=== PATIENT | female | born 1970 | race Caucasian/White ===

== ENCOUNTER 2017-10-26 08:16 | Inpatient (IN) | payer BC, SELFPAY ==
[2017-10-26] VITALS (26 sets, daily range): BP systolic 109–149; BP diastolic 46–85; PULSE 70–102; RESP 16–26; TEMP 36.7–37; O2SAT 95–100; BMI 20.5; BMI 25.0; BMI 23.1; BMI 24.9
--- NOTE | 2017-10-26 | IR_ITS ---
CARDIAC CATHETERIZATION DATE OF CATHETERIZATION:10/26/2017 9:22 AM PROCEDURES: 1. Left heart catheterization 2. Left ventriculogram 3. Selective coronary angiogram 4. Drug-eluting stent deployment to the proximal mid LAD INDICATION FOR TEST: 1. Acute anterior ST elevation myocardial infarction 2. Coronary artery disease Informed consent was obtained prior to the procedure. COMPLICATIONS: None ESTIMATED BLOOD LOSS: Less than 10 ml. TECHNIQUE: One percent lidocaine used to anesthetize the right anterior aspect of the wrist. The right radial artery was accessed via the Seldinger technique. A 6 Romansh sheath was placed in the right radial artery. 2.5 mg of verapamil, 800 mcg of nitroglycerin were given through the arterial sheath. An Attachments.me left guide catheter was used to perform left heart catheterization, left ventriculogram and selective coronary angiogram.. The initial ACT was 188 seconds therefore an additional 4000 units of heparin was administered intra-arterially. A choice PT wire was used to traverse the acute occlusion in the LAD. A 2 mm x 12 mm balloon was taken at 20 jeb to predilate the stenosis. Following this a 2.5 x 38 mm resolute Albany stent was deployed at 20 jeb reducing the 100% occlusion to 0%. An additional 2.5 x 15 mm resolute [place] stent was deployed distal to the first stent yet still overlapping and deployed at 18 jeb. The stent balloon was brought back and deployed at 22 and 24 jeb in the mid segment and proximally. ZULEYKA 0 flow was restored ZULEYKA-3 flow following this the apparatus was removed sheath was removed good hemostasis was achieved using TR banding patient was transferred to the postop holding area in stable condition. Closing ACT was 328 seconds. ANGIOGRAPHIC RESULTS: 1. The left main artery normal 2. The left anterior descending artery has proximal 50% stenosis and is then bluntly occluded. After the stenting the LAD was widely patent with 20 and 30% distal disease 3. The circumflex artery is a nondominant vessel and has a proximal 40-50% stenosis followed by a 40-50% long stenosis in the large first obtuse marginal artery 4. The right coronary artery is a dominant vessel and has mid vessel 40-50% stenosis and distal long 40% stenoses 5. The BURT ventriculogram reveals anterior wall hypokinesis estimated ejection fraction 30-35% 6. The left ventricular end-diastolic pressure 20 mmHg IMPRESSION: 1. Acute anterior myocardial infarction 2. Successful stenting of the proximal to mid LAD 100% occlusion reduced to 0% with 2 drug-eluting stents 3. Regional wall motion abnormality 4. Moderate disease in the right coronary artery and circumflex artery 5. Mildly elevated LVEDP PLAN: 1. Brilinta and aspirin for one year 2. Absolute tobacco cessation 3. LDL less than 55 to be achieved with high intensity statin 4. Cardiac rehabilitation 5. Case inhibitors and carvedilol should be started 6. Risk factor modification
--- NOTE | 2017-10-26 08:17 | PC.NURSE ---
STEMI ALERT CALLED
--- NOTE | 2017-10-26 08:20 | PC.NURSE ---
PADS PLACED TO PATIENT, BILATERAL IV'S PLACED. VENEER DEPARTMENT MANAGER GIRLS AT BEDSIDE.
--- NOTE | 2017-10-26 08:29 | XR_ITS ---
XR chest portable HISTORY: Chest pain ITS.REASON: cp ORDERING PHYSICIAN: PATIENT AGE: 47 years COMPARISON: None available FINDINGS: The cardiomediastinal silhouette and pulmonary vascularity are within normal limits. The lungs are clear without infiltrates, suspicious nodules, or pleural effusions. Metallic lines are noted over the lower chest consistent with monitoring devices. Calcified granuloma right upper lobe. No acute bony abnormalities. IMPRESSION: No acute finding
--- NOTE | 2017-10-26 08:34 | HMH.EDGENADL ---
ED Disposition Clinical Impression: ST elevation myocardial infarction (STEMI) of anterior wall Disposition: Still a Patient Condition on Discharge: Critical - Critical Care Critical Care Time: Yes Attestation: On , the high probability of a clinically significant, sudden or life threatening deterioration of the following system(s) required my full and direct attention, intervention and personal management. The time I documented below is in addition to time spent performing reported procedures but includes the following listed in this critical care notation. Total Critical Care Time: 15 Vital system(s) involved:: Circulatory Failure (STEMI) My critical care processes included: Assessment & monitoring of V/S, Initial and Re-exams, Data Review/Interpretation, Coordinating Care, Medication Orders and management, Documentation Medical Decision Making Vital Signs: 10/26/17 08:21 Temperature 98.6 F Temperature Source Oral Pulse Rate [Right Brachial] 86 Respiratory Rate 26 H Blood Pressure [Right Arm] 135/85 Blood Pressure Mean [Right Arm] 101 Blood Pressure Source [Right Arm] Automatic Cuff Blood Pressure Position [Right Arm] Sitting 02 Sat by Pulse Oximetry 100 Oxygen Delivery Method Room Air Orders (Tests/Meds): ED MEDICATIONS Generic Name Dose Route Start Last Admin Trade Name Freq PRN Reason Stop Dose Admin Diphenhydramine HCl 50 mg 10/26/17 08:25 Benadryl 50mg/1ml Vial IV 10/26/17 08:26 ONCE ONE Fentanyl Citrate 50 mcg 10/26/17 08:25 Fentanyl 100mcg/2ml Vial IV 10/27/17 08:25 Q3MINP PRN Moderate to Severe Pain Fentanyl Citrate 25 mcg 10/26/17 08:25 Fentanyl 100mcg/2ml Vial IV 10/27/17 08:25 Q3MINP PRN Moderate to Severe Pain Fentanyl Citrate 25 mcg 10/26/17 08:31 Fentanyl 100mcg/2ml Vial IV 10/27/17 08:31 Q3MINP PRN Moderate to Severe Pain Fentanyl Citrate 50 mcg 10/26/17 08:31 Fentanyl 100mcg/2ml Vial IV 10/27/17 08:31 Q3MINP PRN Moderate to Severe Pain Flumazenil 0.2 mg 10/26/17 08:25 Romazicon 0.1mg/Ml 5ml Vial IV 10/26/17 23:00 NEEDED PRN Sedation Flumazenil 0.2 mg 10/26/17 08:31 Romazicon 0.1mg/Ml 5ml Vial IV 10/26/17 23:00 NEEDED PRN Sedation Heparin Sodium (Porcine) 10,000 unit 10/26/17 08:25 Heparin 1,000 Units/Ml 10ml Vial (Cnc Programmer) IV 10/26/17 12:25 NEEDED PRN Emergency Box Lifts And Cranes Inspector Heparin Sodium/Sodium Chloride 3,000 unit 10/26/17 08:25 Heparin 1000 Units/500ml Ns (Cnc Programmer) IV 10/26/17 08:26 ONCE ONE Sodium Chloride 1,000 mls @ 25 mls/hr 10/26/17 08:30 Sod Chloride 0.9% 1000ml Bag IV 10/27/17 08:25 .Q25H NESSA Lidocaine HCl 20 ml 10/26/17 08:25 Lidocaine 1% 20ml Mdv IJ 10/26/17 08:26 ONCE ONE Midazolam HCl 1 mg 10/26/17 08:25 Midazolam 2mg/2ml Vial IV 10/27/17 08:25 Q3MINP PRN Sedation Midazolam HCl 1 mg 10/26/17 08:25 Midazolam 1mg/Ml 5ml Vial IV 10/27/17 08:25 Q3MINP PRN Sedation Midazolam HCl 1 mg 10/26/17 08:31 Midazolam 2mg/2ml Vial IV 10/27/17 08:31 Q3MINP PRN Sedation Midazolam HCl 1 mg 10/26/17 08:31 Midazolam 1mg/Ml 5ml Vial IV 10/27/17 08:31 Q3MINP PRN Sedation Naloxone HCl 0.4 mg 10/26/17 08:25 Narcan 0.4mg/Ml Vial IV 10/27/17 08:25 Q5MINP PRN Decreased respirations Naloxone HCl 0.4 mg 10/26/17 08:31 Narcan 0.4mg/Ml Vial IV 10/27/17 08:31 Q5MINP PRN Decreased respirations Nitroglycerin 800 mcg 10/26/17 08:25 Nitroglycerin 800mcg/8ml Syr (Cnc Programmer) IV 10/27/17 08:25 NEEDED PRN Emergency Box Lifts And Cranes Inspector Verapamil HCl 2.5 mg 10/26/17 08:25 Verapamil 2.5mg/Ml 2ml Vial IV 10/26/17 08:26 ONCE ONE Discontinued Medications Generic Name Dose Route Start Last Admin Trade Name Freq PRN Reason Stop Dose Admin
--- NOTE | 2017-10-26 08:34 | HMH.CARDCON2 ---
History of Present Illness Consult date: 10/26/17 Consult reason: chest pain Chief complaint: chest pain History of present illness: 47 yo WF with tobacco use seen in ER for chest pain. Awoke her from sleep at 4:30 but subsided thereafter and refused transport to ER at that time. Symptoms recurred at 8:06 and were more intense with nausea and left arm pain. She was transferred to ER with EKG showing ST elevation in the anterior leads. STEMI alert called. Pt received ASA, Brilinta, heparin and morphine and taken urgently to cathead operator. Review of Systems - *Cardiovascular Reports chest pain - *Respiratory Reports shortness of breath - *Gastrointestinal Reports nausea - *Musculoskeletal Reports back pain [facility] History - *Social History Educational Level: Completed High School Smoking Status: Current every day smoker Tobacco Type: cigarettes # Packs/Day (cigarettes): 1 Alcohol Intake: never - Psychiatric History Expresses thoughts of harming self/others: None Suicide Plan Description: No Plan Meds Home Medications Medication Instructions Recorded Confirmed Type No Known Home Medications [No 10/26/17 10/26/17 History Known Home Medications] Allergies Allergy/AdvReac Type Severity Reaction Status Date / Time ketorolac [From TORADOL] Allergy Unknown Verified 10/26/17 08:31 Exam Vital signs and Labs for Last 24 Hours: Temp Pulse Resp BP Pulse Ox 98.6 F 86 26 H 135/85 100 10/26/17 08:21 10/26/17 08:21 10/26/17 08:21 10/26/17 08:21 10/26/17 08:21 I & O for Last 24 hours: Intake & Output 10/23/17 10/24/17 10/25/17 10/26/17 11:59 11:59 11:59 11:59 Weight 150 lb - *Routine Neck Exam Absent: JVD, carotid bruit - *Routine Respiratory Exam Present: CTA bilaterally - *Routine Cardiovascular Exam Present: RRR. Absent: murmur, gallop, rubs - *Routine Extremities Exam Absent: edema - *Routine Neurological Exam Present: alert, moving all extremities Results 10/26/17 Unknown 10/26/17 08:20 Intake and Output 10/25/17 10/26/17 10/26/17 19:59 03:59 11:59 Other: Weight 150 lb Patient Weight 10/26/17 11:59 Weight 150 lb - EKG Interpretation EKG: sinus rhythm EKG interpretations - EKG EKG results cardiology: sinus rhythm - [place], pacemaker, normal Myocardial infarction: anterior [place] (acute or recent) Assessment and Plan (1) STEMI (ST elevation myocardial infarction) Current visit: No Status: Acute Category: Medical Code(s): I21.3 - ST elevation (STEMI) myocardial infarction of unspecified site (2) Tobacco use Current visit: No Status: Acute Category: Social Hx Code(s): Z72.0 - Tobacco use (3) Back pain Current visit: No Status: Acute Category: Medical Code(s): M54.9 - Dorsalgia, unspecified - Assessment and plan all Dx Assessment and Plan for all problems:: 1. ASA, Brilinta, NTG paste and heparin. 2. label printing machinist for urgent stenting. 3. Add statin therapy.
--- NOTE | 2017-10-26 08:40 | P.CONS_ITS ---
History of Present Illness Consult date: 10/26/17 Consult reason: chest pain Chief complaint: chest pain History of present illness: 47 yo WF with tobacco use seen in ER for chest pain. Awoke her from sleep at 4: 30 but subsided thereafter and refused transport to ER at that time. Symptoms recurred at 8:06 and were more intense with nausea and left arm pain. She was transferred to ER with EKG showing ST elevation in the anterior leads. STEMI alert called. Pt received ASA, Brilinta, heparin and morphine and taken urgently to laborer airport maintenance. Review of Systems - *Cardiovascular Reports chest pain - *Respiratory Reports shortness of breath - *Gastrointestinal Reports nausea - *Musculoskeletal Reports back pain [facility] History - *Social History Educational Level: Completed High School Smoking Status: Current every day smoker Tobacco Type: cigarettes # Packs/Day (cigarettes): 1 Alcohol Intake: never - Psychiatric History Expresses thoughts of harming self/others: None Suicide Plan Description: No Plan Meds Home Medications Medication Instructions Recorded Confirmed Type No Known Home Medications [No 10/26/17 10/26/17 History Known Home Medications] Allergies Allergy/AdvReac Type Severity Reaction Status Date / Time ketorolac [From TORADOL] Allergy Unknown Verified 10/26/17 08:31 Exam Vital signs and Labs for Last 24 Hours: Temp Pulse Resp BP Pulse Ox 98.6 F 86 26 H 135/85 100 10/26/17 08:21 10/26/17 08:21 10/26/17 08:21 10/26/17 08:21 10/26/17 08:21 I & O for Last 24 hours: Intake & Output 10/23/17 10/24/17 10/25/17 10/26/17 11:59 11:59 11:59 11:59 Weight 150 lb - *Routine Neck Exam Absent: JVD, carotid bruit - *Routine Respiratory Exam Present: CTA bilaterally - *Routine Cardiovascular Exam Present: RRR. Absent: murmur, gallop, rubs - *Routine Extremities Exam Absent: edema - *Routine Neurological Exam Present: alert, moving all extremities Results 10/26/17 Unknown 10/26/17 08:20 Intake and Output 10/25/17 10/26/17 10/26/17 19:59 03:59 11:59 Other: Weight 150 lb Patient Weight 10/26/17 11:59 Weight 150 lb - EKG Interpretation EKG: sinus rhythm EKG interpretations - EKG EKG results cardiology: sinus rhythm - [place], pacemaker, normal Myocardial infarction: anterior [place] (acute or recent) Assessment and Plan (1) STEMI (ST elevation myocardial infarction) Current visit: No Status: Acute Category: Medical Code(s): I21.3 - ST elevation (STEMI) myocardial infarction of unspecified site (2) Tobacco use Current visit: No Status: Acute Category: Social Hx Code(s): Z72.0 - Tobacco use (3) Back pain Current visit: No Status: Acute Category: Medical Code(s): M54.9 - Dorsalgia, unspecified - Assessment and plan all Dx Assessment and Plan for all problems:: 1. ASA, Brilinta, NTG paste and heparin. 2. powerhouse laborer for urgent stenting. 3. Add statin therapy.
[2017-10-26 09:04] LABS: CKMB Relative Index 1.8 U/L (0-4.0); Creatine Kinase 72 U/L (26-192); Creatine Kinase MB 1.3 mg/ml (0.0-3.6); Troponin I 0.34 ng/ml (0.00-0.06)
[2017-10-26 11:29] LABS: INR 0.92 (0.9-1.1); Prothrombin Time 9.9 seconds (9.4-11.8)
[2017-10-26 11:30] LABS: Basophils # 0.1 K/mm3 (0-0.2); Basophils % 1.1 % (0.1-2.0); Eosinophils # 0.2 K/mm3 (0.0-0.4); Eosinophils % 1.9 % (0.1-12.0); Hematocrit 40.8 % (37.0-47.0); Hemoglobin 13.7 g/dL (12.2-16.2); Lymphocytes # 4.1 K/mm3 (0.7-4.5); Lymphocytes % 47.7 K/mm3 (10-50); Mean Corpuscular HGB Conc 33.5 g/dL (31.8-35.4); Mean Corpuscular Hemoglobin 32.6 pg (27.0-31.2); Mean Corpuscular Volume 97.3 fl (81-99); Mean Platelet Volume 7.3 fl (7.4-10.4); Monocytes # 0.5 K/mm3 (0.1-1.0); Monocytes % 5.7 % (1.7-9.3); Neutrophils # 3.5 K/mm3 (1.8-7.8); Neutrophils % 41.1 % (37.0-80.0); Platelet Count 264 K/mm3 (142-424); White Blood Count 8.5 K/mm3 (4.8-10.8)
[2017-10-26 11:36] LABS: Anion Gap 17.1 mEq/L (5-15); Blood Urea Nitrogen 13 mg/dL (7-18); Calcium 9.1 mg/dL (8.5-10.1); Carbon Dioxide 23 mmol/L (21.0-32.0); Chloride 102 mmol/L (98-107); Creatinine Clearance Estimated 77 mL/min (0-300); Creatinine,Serum 0.87 mg/dL (0.55-1.02); Estimated Glomerular Filt Rate 70 ml/min (>60); GFR (African American) 84 ML/MIN (>60); Glucose 160 mg/dL (74-106); Potassium 3.1 mmoL/L (3.5-5.1); Sodium 139 mmol/L (136-145)
[2017-10-26 11:59] LABS: Alanine Aminotransferase 24 U/L (12-78); Albumin Level 3.8 gm/dL (3.4-5.0); Albumin/Globulin Ratio 1.1 (1.1-1.8); Alkaline Phosphatase 88 U/L (46-116); Aspartate Amino Transferase 11 U/L (15-37); Bilirubin,Total 0.3 mg/dL (0.2-1.0); Globulin 3.6 gm/dl (1.3-3.2); Total Protein,Serum 7.4 gm/dL (6.4-8.2)
--- NOTE | 2017-10-26 13:31 | PC.NURSE ---
LATE ENTRY: UPON ARRIVAL TO FLOOR AT 1050 PATIENT IMMEDIATELY STARTED STATING SHE WAS WANTING TO GO OUT TO SMOKE. PATIENT WAS EDUCATED THAT THIS WAS A NONSMOKING FACILITY, WELL THE FACT SHE WAS A STEP DOWN PATIENT AND STILL HAD TRACELET ON AND FOR SAFETY REASONS COULD NOT ALLOW IT. PATIENT MADE MULTIPLE COMMENTS ABOUT HOW YOU JUST WON'T KNOW . PATIENT REMINDED THIS WAS A LOCKED UNIT. RACHANA SMITH SPOKE WITH PATIENT ABOUT NOT SMOKING AND ORDERED ATIVAN AND A NICOTENE PATCH. AFTER PATIENT IMMEDIATELY ASKED WHEN WILL THAT DOCTOR BE GONE. I AM STILL GOING TO GO OUT. . PATIENT EDUCATED TO NOT SMOKE WITH NICOTENE PATCH ON AND PATIENT STATED VAL DONE IT BEFORE AND IT DIDN'T DO ANYTHING. PATIENT ENCOURAGED AGAIN TO NOT SMOKE AND PATIENT REMINDED THAT SHE SHOULDN'T SMOKE IN HER CURRENT CONDITION, AND PATIENT WENT ON SAYING SHE WAS GONNA SMOKE IN THE BATHROOM. EDUCATED ABOUT OXYGEN ON THE MUNIZ. ASKED PATIENT THAT IF SHE DID GO OUT TO AT LEAST WAIT UNTIL TRACELET WAS REMOVED. AFTER OBSERVING STAFF TURN DOWN TRACELT PATIENT TOOK IT UPON HER SELF TO TURN IT DOWN WHEN STAFF WAS LATE GETTING IN TO HER ROOM. WRIST STARTED BLEEDING, AND SHE HOLLERED OUT. AIR REPLACED IN TRACELET, MINIMAL BLEEDING WAS NOTED THAT STOPPED AFTER AIR INSERTION. AT THAT TIME PATIENT DEMANDED TO GO OUT NOW, AND SIGNED OFF UNIT CONSENT. PATIENT REMINDED TO COME BACK WITH ANY BLEEDING BUT THAT BY GOING OFF FLOOR WE COULD NO LONGER MONITOR HER. PATIENT WENT OUT AND DID COME BACK SHORTLY AFTER STATING SOMEONE FROM INCISING MACHINE OPERATOR HAD TOLD HER SHE HAD A MAKER, AND HAS NOW DECIDED TO REST IN BED
[2017-10-26 15:35] LABS: CATHL Activated Clotting Time 188 SEC (74-125)
[2017-10-26 15:36] LABS: CATHL Activated Clotting Time 328 SEC (74-125)
--- NOTE | 2017-10-26 15:47 | PC.NURSE ---
MD WAS CALLED AT THIS TIME PER PATIENT REQUEST ABOUT HOME MEDICATIONS. SPOKE WITH ERNESTO AT THE OFFICE AND LEFT MESSAGE FOR MD. STATED PATIENT WAS WANTING HOME MEDS REORDERED. NURSE RESPONDED SHE THOUGHT MD WOULD BE IN EARLY TONIGHT TO SEE PATIENT BUT THAT SHE WOULD PASS ALONG THE MESSAGE TO THE MD
--- NOTE | 2017-10-26 16:01 | PC.NURSE ---
PATIENT LEFT FLOOR AGAIN AT ABOUT 1400 UPSET THAT SHE HAD NOT GOTTEN A MOUNTAIN DEW. PATIENT WENT DOWN SIDE ELEVATOR BY CASE MANAGEMENT. TAPING FOREMAN AND ANOTHER RN ATTEMPTED TO STOP PATIENT WHO REFUSED TO STOP. PATIENT FOUND BY CASE MANAGEMENT DOWN IN [place]. PATIENT CAME BACK UP STAIRS, AND STAFF ASSESS PATIENT CONDITION. TRACELET STILL ON AND READY TO BE REMOVED AT THIS TIME. UPON TAKING TRACELET OFF IT WAS NOTED TO HAVE A SMALL HEMATOMA AT THE SITE OF INSERTION AND BRUISING AND HEMATOMA ABOVE THE SITE. PRESSURE HELD TO ARM FOR 15 MINUTES. UPON REASSESSING NOTED TO HAVE DECREASE AND DIMINSHED OF HEMATOMA, JUST BRUISING ABOVE SITE. TELFA AND TEGADERM PLACED TIGHTLY OVER SITE. JUICE BONILLA RN FROM PACKAGING COORDINATOR ASSESSED ARE WELL STATING IT LOOKED GOOD AT THIS TIME.
--- NOTE | 2017-10-26 17:29 | PC.NURSE ---
At approx 1240, pt was noticed attempting to go to bathroom still connected to monitors. staff rn approached pt and attempted to assist pt. At this time the pt stated to staff registered nurse that it was time . When asked to elaborate the pt stated that she, the pt had been turning the little dial every 15 mins to take air out of that thing . The pt was informed that the nurses were the only ones that are supposed to/allowed to remove the air from the device, bc the pt requires close monitoring in case the artery were to begin bleeding again. Primary RN Josefina Patterson was notified of situation, air was placed back in the tracelet and pt was monitored. Memo Cerna was notified of incident immediately following occurrence. Memo Cerna PA reinforced the severity of the issue.
[2017-10-27] VITALS (15 sets, daily range): BP systolic 77–146; BP diastolic 43–95; PULSE 60–94; RESP 12–18; TEMP 36.4–36.8; O2SAT 95–99
--- NOTE | 2017-10-27 00:43 | PC.NURSE ---
Pt left the floor at this time with her brother and a woman. Stated she was walking them down.
--- NOTE | 2017-10-27 01:02 | PC.NURSE ---
PT IS BACK TO THE UNIT AT THIS TIME.
--- NOTE | 2017-10-27 02:56 | PC.NURSE ---
PT IS A&OX3. SHE HAS BEEN AMBULATING INDEPENDENTLY. SHE REPORTED BACK PAIN. NSR ON TELEMETRY. SHE IS S/P HEART CATH WITH RIGHT RADIAL DSG. DSG IS C/D/I. SHE WAS EDUCATED NOT PUSH OR PULL WITH RIGHT ARM. SHE WAS EDUCATED TO NOTIFY STAFF IF SHE FELT ANY THROBBING OR PULSATING, OR IF SHE NOTICED ANY BRUISING, BLEEDING, OR SWELLING AT THE SITE. SHE VERBALIZED UNDERSTANDING. VSS. POSITIVE RADIAL AND PEDAL PULSES. CAPILLARY REFILL <3.
--- NOTE | 2017-10-27 06:31 | PC.NURSE ---
PT LEFT THE FLOOR AT THIS TIME.
--- NOTE | 2017-10-27 06:38 | PC.NURSE ---
PT RETURNED TO THE FLOOR AT THIS TIME.
[2017-10-27 06:58] LABS: Anion Gap 12.2 mEq/L (5-15); Blood Urea Nitrogen 7 mg/dL (7-18); Carbon Dioxide 27 mmol/L (21.0-32.0); Chloride 104 mmol/L (98-107); Chol/HDL Ratio 3.3 (1-3.5); Cholesterol 163 mg/dL (140-200); Creatinine Clearance Estimated 110 mL/min (0-300); Creatinine,Serum 0.66 mg/dL (0.55-1.02); Estimated Glomerular Filt Rate 96 ml/min (>60); GFR (African American) 116 ML/MIN (>60); Glucose 116 mg/dL (74-106); HDL Cholesterol 49 mg/dL (29-89); LDL Cholesterol 88 mg/dL (0-130); Potassium 4.2 mmoL/L (3.5-5.1); Sodium 139 mmol/L (136-145); Triglycerides 128 mg/dL (30-200); VLDL Cholesterol 26 mg/dL (0-40)
--- NOTE | 2017-10-27 08:58 | PC.NURSE ---
Pt leaving the floor at this time. pt was advised that this is a non-smoking facility. the pt was also advised she had a heart attack yesterday, and with her leaving the floor, I as well as the physicians are unble to properly monitor her. If she were to have second event, I am unable to help her because she is off of the floor. Pt states that she is aware of this thats why she signed the paper . referring to the off unit consent. Awaiting pt return to floor.
--- NOTE | 2017-10-27 09:20 | HMH.HP ---
*Admission Date: 10/26/17 *Chief complaint: chest pain *History of present illness: this wf with acute onset of chest pain - she had episode about 3 am and then she had new episode in am and presented to ed -he patient drove herself to the emergency room. She complains of severe chest pain. She says it first started at about 4:30 AM, and she apparently called 911 but was not transported. She said the pain went away, but she cannot estimate how long it lasted. She now complains current pain started it 8:06 AM. Slight nausea. Pain radiates between her shoulder blades in her back. Tingling of her left arm. Denies shortness of breath. No history of cardiac disease. She is a smoker. She does not have hypertension, diabetes, or hyperlipidemia to her knowledge.pt was seen by card . The left main artery normal 2. The left anterior descending artery has proximal 50% stenosis and is then bluntly occluded. After the stenting the LAD was widely patent with 20 and 30% distal disease 3. The circumflex artery is a nondominant vessel and has a proximal 40-50% stenosis followed by a 40-50% long stenosis in the large first obtuse marginal artery 4. The right coronary artery is a dominant vessel and has mid vessel 40-50% stenosis and distal long 40% stenoses 5. The BURT ventriculogram reveals anterior wall hypokinesis estimated ejection fraction 30-35% 6. The left ventricular end-diastolic pressure 20 mmHg IMPRESSION: 1. Acute anterior myocardial infarction 2. Successful stenting of the proximal to mid LAD 100% occlusion reduced to 0% with 2 drug-eluting stents 3. Regional wall motion abnormality 4. Moderate disease in the right coronary artery and circumflex artery 5. Mildly elevated LVEDP PLAN: 1. Brilinta and aspirin for one year 2. Absolute tobacco cessation 3. LDL less than 55 to be achieved with high intensity statin 4. Cardiac rehabilitation 5. Case inhibitors and carvedilol should be started 6. Risk factor modification [facility] History I have reviewed the patient's past medical history: Yes Medical History: Reports:: Myocardial Infarction (10/26/17) Denies:: Cancer, Diabetes Mellitus Type 1, Diabetes Mellitus Type 2, MRSA Other Medical History: Reports: Anemia, Arthritis Other Surgeries: Yes: (4), Hysterectomy-Total, Hysterectomy-Partial Amputation: No Fractures: No - *Social History Educational Level: Completed High School Smoking Status: Current every day smoker Tobacco Type: cigarettes # Packs/Day (cigarettes): 1 #Yrs smoked (if former smoker): 30 Alcohol Intake: never Occupational Status: employed, other Housing: house Household Members: children - Psychiatric History Expresses thoughts of harming self/others: None Suicide Plan Description: No Plan *Family Hx:: Hypertension, Thyroid Disorder Review of Systems - Review of Systems Review of systems:: pertinent systems reviewed and negative unless documented below - Constitutional Denies fever(s), Denies headache(s) - Eyes Denies change in vision - ENT Denies sinus pain - *Cardiovascular Reports chest pain at rest - *Respiratory Reports shortness of breath, Denies cough - *Gastrointestinal Denies abdominal pain - *Musculoskeletal Denies joint pain, Denies joint swelling - Integumentary/Breasts Denies rash - *Neurologic Reports tingling, Denies seizure-like activity - Psychiatric Reports anxiety Meds Home Medications Medication Instructions Recorded Confirmed Type Baclofen [Lioresal 10mg tablet] 10 mg PO TIDP PRN 10/26/17 10/26/17 History Fluoxetine HCl [Prozac 10mg 40 mg PO HS 10/26/17 10/26/17 History Capsule] Hydrocodone/Acetaminophen 1 each PO Q6HP PRN 10/26/17 10/26/17 History [Hydrocodon-Acetaminoph 7.5-325] Zolpidem Tartrate [Ambien Cr] 6.25 mg PO HS 10/26/17 10/26/17 History Allergies Allergy/AdvReac Type Severity Reaction Status Date / Time ketorolac [From TORADOL] Allergy Unknown Verifi
--- NOTE | 2017-10-27 13:47 | P.CONPHA_ITS ---
[facility] Pharmacy VTE Monitoring - Patient Demographics Admission date: 10/26/17 Report Date: 10/27/17 Time: 13:47 Allergies/Adverse Reactions: Patient Allergies ketorolac [From TORADOL] Allergy (Unknown, Verified 10/26/17 08:31) Height: 1.63 m Weight: 66.31 kg Patient Problems: Current Active Problems ST elevation myocardial infarction (STEMI) of anterior wall (Acute) - VTE Risk Labs: VTE Related Lab Results Hgb 13.7 g/dL (12.2-16.2) 10/26/17 Unknown Hct 40.8 % (37.0-47.0) 10/26/17 Unknown Plt Count 264 K/mm3 (142-424) 10/26/17 Unknown PT 9.9 seconds (9.4-11.8) 10/26/17 Unknown INR 0.92 (0.9-1.1) 10/26/17 Unknown APTT 23.0 seconds (23.6-34.0) L 10/26/17 Unknown BUN 7 mg/dL (7-18) D 10/27/17 06:20 Creatinine 0.66 mg/dL (0.55-1.02) D 10/27/17 06:20 Estimated Creat Clear 110 mL/min (0-300) 10/27/17 06:20 Was VTE Risk Assessment Performed: Yes VTE Score: 2 - Prophylaxis VTE Prophylaxis Ordered?: Yes Types of VTE Prophylaxis: TEDS Knee High Location of Applied Device: Bilateral Lower Extremeties
--- NOTE | 2017-10-27 21:43 | PC.NURSE ---
PT HAS FAMILY VISITING HER AT THIS TIME.
--- NOTE | 2017-10-27 21:46 | PC.NURSE ---
PT IS LEAVING THE FLOOR AT THIS TIME WITH FAMILY.
--- NOTE | 2017-10-27 22:02 | PC.NURSE ---
PT RETURNED TO THE UNIT AT THIS TIME.
[2017-10-28] VITALS (9 sets, daily range): BP systolic 82–114; BP diastolic 47–74; PULSE 60–91; RESP 12–19; TEMP 36.6–36.8; O2SAT 91–96
--- NOTE | 2017-10-28 03:34 | PC.NURSE ---
PT IS A&OX3. SHE HAS LEFT THE FLOOR TWICE DURING THIS SHIFT. SHE REFUSES THE NICOTINE PATCH. STATED THAT IT DOES NOT WORK. SHE AMBULATES INDEPENDENTLY WITH A STEADY GAIT. SHE BECAME HYPOTENSIVE AFTER SHE WENT TO SLEEP. AWAKENS EASILY. DENIES SOB.
--- NOTE | 2017-10-28 04:12 | PC.NURSE ---
PT LEFT THE FLOOR AT THIS TIME.
--- NOTE | 2017-10-28 12:12 | [facility].DCSUM ---
General - General Admission date: 10/26/17 Discharge date: 10/28/17 HPI HPI: this wf with acute onset of chest pain - she had episode about 3 am and then she had new episode in am and presented to ed -he patient drove herself to the emergency room. She complains of severe chest pain. She says it first started at about 4:30 AM, and she apparently called 911 but was not transported. She said the pain went away, but she cannot estimate how long it lasted. She now complains current pain started it 8:06 AM. Slight nausea. Pain radiates between her shoulder blades in her back. Tingling of her left arm. Denies shortness of breath. No history of cardiac disease. She is a smoker. She does not have hypertension, diabetes, or hyperlipidemia to her knowledge.pt was seen by card . The left main artery normal 2. The left anterior descending artery has proximal 50% stenosis and is then bluntly occluded. After the stenting the LAD was widely patent with 20 and 30% distal disease 3. The circumflex artery is a nondominant vessel and has a proximal 40-50% stenosis followed by a 40-50% long stenosis in the large first obtuse marginal artery 4. The right coronary artery is a dominant vessel and has mid vessel 40-50% stenosis and distal long 40% stenoses 5. The BURT ventriculogram reveals anterior wall hypokinesis estimated ejection fraction 30-35% 6. The left ventricular end-diastolic pressure 20 mmHg IMPRESSION: 1. Acute anterior myocardial infarction 2. Successful stenting of the proximal to mid LAD 100% occlusion reduced to 0% with 2 drug-eluting stents 3. Regional wall motion abnormality 4. Moderate disease in the right coronary artery and circumflex artery 5. Mildly elevated LVEDP PLAN: 1. Brilinta and aspirin for one year 2. Absolute tobacco cessation 3. LDL less than 55 to be achieved with high intensity statin 4. Cardiac rehabilitation 5. Case inhibitors and carvedilol should be started 6. Risk factor modification Objective Vital signs: Temp Pulse Resp BP Pulse Ox 98.2 F 74 12 95/52 96 10/28/17 10:00 10/28/17 10:00 10/28/17 10:00 10/28/17 10:00 10/28/17 10:00 no acute distress - *Routine HEENT Exam Eye: Present: EOMI, PERRL ENT: Present: mucous membranes dry - *Routine Neck Exam Present: supple - *Routine Respiratory Exam Present: CTA bilaterally - *Routine Cardiovascular Exam Present: RRR. Absent: murmur - *Routine Abdominal Exam Present: soft. Absent: tenderness, distended - *Routine Extremities Exam Present: full ROM - Routine Back/Spine/Pelvis Exam Back/Spine: Present: full ROM - *Routine Skin Exam Present: intact - *Routine Neurological Exam Present: alert, oriented X3, CN II-XII intact - Routine Psychiatric Exam Present: normal affect Hospital Course Hospital Course: pt did well after stents with no chest pain and has no other c/o DS: Diagnosis - Discharge Diagnosis (1) STEMI (ST elevation myocardial infarction) Status: Acute (2) Tobacco use Status: Acute (3) Back pain Status: Acute Meds Home Medications Medication Instructions Recorded Confirmed Type Baclofen [Lioresal 10mg tablet] 10 mg PO TIDP PRN 10/26/17 10/26/17 History Fluoxetine HCl [Prozac 10mg 40 mg PO HS 10/26/17 10/26/17 History Capsule] Hydrocodone/Acetaminophen 7.5 - 325 mg PO Q6HP PRN 10/26/17 10/27/17 History [Hydrocodon-Acetaminoph 7.5-325] Zolpidem Tartrate [Ambien Cr] 6.25 mg PO HS 10/26/17 10/26/17 History Allergies Allergy/AdvReac Type Severity Reaction Status Date / Time ketorolac [From TORADOL] Allergy Unknown Verified 10/26/17 08:31 Discharge Plan - Patient Discharge Instructions ACTIVITY: Continue current activity DIET: continue same diet Patient Instructions: Cardiac Catheterization - Follow up Plan Follow up with: Indra Carrera MD [Staff Physician] - 11/01/17 9:00 am Disposition: Home, Self-Shelter
--- NOTE | 2017-10-28 12:15 | P.DS_ITS ---
General - General Admission date: 10/26/17 Discharge date: 10/28/17 HPI HPI: this wf with acute onset of chest pain - she had episode about 3 am and then she had new episode in am and presented to ed -he patient drove herself to the emergency room. She complains of severe chest pain. She says it first started at about 4:30 AM, and she apparently called 911 but was not transported. She said the pain went away, but she cannot estimate how long it lasted. She now complains current pain started it 8:06 AM. Slight nausea. Pain radiates between her shoulder blades in her back. Tingling of her left arm. Denies shortness of breath. No history of cardiac disease. She is a smoker. She does not have hypertension, diabetes, or hyperlipidemia to her knowledge.pt was seen by card . The left main artery normal 2. The left anterior descending artery has proximal 50% stenosis and is then bluntly occluded. After the stenting the LAD was widely patent with 20 and 30% distal disease 3. The circumflex artery is a nondominant vessel and has a proximal 40-50% stenosis followed by a 40-50% long stenosis in the large first obtuse marginal artery 4. The right coronary artery is a dominant vessel and has mid vessel 40-50% stenosis and distal long 40% stenoses 5. The BURT ventriculogram reveals anterior wall hypokinesis estimated ejection fraction 30-35% 6. The left ventricular end-diastolic pressure 20 mmHg IMPRESSION: 1. Acute anterior myocardial infarction 2. Successful stenting of the proximal to mid LAD 100% occlusion reduced to 0% with 2 drug-eluting stents 3. Regional wall motion abnormality 4. Moderate disease in the right coronary artery and circumflex artery 5. Mildly elevated LVEDP PLAN: 1. Brilinta and aspirin for one year 2. Absolute tobacco cessation 3. LDL less than 55 to be achieved with high intensity statin 4. Cardiac rehabilitation 5. Case inhibitors and carvedilol should be started 6. Risk factor modification Objective Vital signs: Temp Pulse Resp BP Pulse Ox 98.2 F 74 12 95/52 96 10/28/17 10:00 10/28/17 10:00 10/28/17 10:00 10/28/17 10:00 10/28/17 10:00 no acute distress - *Routine HEENT Exam Eye: Present: EOMI, PERRL ENT: Present: mucous membranes dry - *Routine Neck Exam Present: supple - *Routine Respiratory Exam Present: CTA bilaterally - *Routine Cardiovascular Exam Present: RRR. Absent: murmur - *Routine Abdominal Exam Present: soft. Absent: tenderness, distended - *Routine Extremities Exam Present: full ROM - Routine Back/Spine/Pelvis Exam Back/Spine: Present: full ROM - *Routine Skin Exam Present: intact - *Routine Neurological Exam Present: alert, oriented X3, CN II-XII intact - Routine Psychiatric Exam Present: normal affect Hospital Course Hospital Course: pt did well after stents with no chest pain and has no other c/o DS: Diagnosis - Discharge Diagnosis (1) STEMI (ST elevation myocardial infarction) Status: Acute (2) Tobacco use Status: Acute (3) Back pain Status: Acute Meds Home Medications Medication Instructions Recorded Confirmed Type Baclofen [Lioresal 10mg tablet] 10 mg PO TIDP PRN 10/26/17 10/26/17 History Fluoxetine HCl [Prozac 10mg 40 mg PO HS 10/26/17 10/26/17 History Capsule] Hydrocodone/Acetaminophen 7.5 - 325 mg PO Q6HP PRN 10/26/17 10/27/17 History
== END 2017-10-28 13:50 | disposition home or self-care (01) | DRG 247 ==
LOC: ER 08:47 → CATHLAB 11:29 → ICU 11:59
PROVIDERS: Admitting Provider Internal Medicine; Emergency Provider Emergency Medicine; Family Provider Emergency Medicine; PCP Emergency Medicine; Visit Provider Emergency Medicine
PROC: 4A023N7 Measurement of Cardiac Sampling and Pressure, Left Heart, Percutaneous Approach (ICD-10-PCS; principal; 2017-10-26 08:20)
DX: I21.02 ST elevation (STEMI) myocardial infarction involving left anterior descending coronary artery (principal); Z72.0 Tobacco use; Z91.19 Patient's noncompliance with other medical treatment and regimen
CPT/HCPCS: 36415; 71045; 80048; 80053; 80061; 82550; 82553; 84484; 85025; 85347; 85610; 85730; 92928; 93005; 93458; 96365; 99152; 99153; 99203; C1725; C1769; C1876; C9600; G0378; J1644; J2405; Q9967

== ENCOUNTER → 2017-12-18 15:09 | Outpatient (CLI) | payer BC, SELFPAY ==
--- NOTE | 2017-12-18 15:15 | CA_ITS ---
PROCEDURE: 2-D M-mode and color Doppler study INDICATIONS FOR THE TEST: Chest pain COPD Heart Murmur Tobacco Smoking Palpitations Fatigue Syncope Edema Hypertension Diabetes Mellitus Rheumatic Fever SOB [place] Obesity HyperlipidemiaX Family History HD Additional History CAD,RECENT DE PATIENT INFORMATION HEIGHT: 64 WEIGHT:140 GENDER: Female B/P:96/50 2-D/M-MODE INTERPRETATION: 2-D MEASUREMENTS OBSERVED VALUES IN CMS Right Ventricular Dimension (RVDd) 2.3 Interventricular Septum (Thickness)(IVsd) .9 Left Ventricular Internal Dimensions(LVIDd) 5.1 Left Ventricular Posterior Wall (Thickness)(LVPWd) .9 Aortic Root 3.3 Aortic Cusp Separation 1.8 Left Atrial Dimensions (LAD) 2.6 2D 1. Left atrium is normal size, left ventricle is normal size, there is no concentric left ventricular hypertrophy, visually estimated ejection fraction 55% with no obvious regional wall motion abnormality. 2. The right atrium and right ventricle are normal size and contractility. 3. The aortic, mitral and tricuspid valvular grossly normal. 4. The pulmonic valve is poorly visualized. 5. There is no significant pericardial effusion noted. DOPPLER INTERROGATION: Doppler interrogation of the aortic, mitral and tricuspid valve reveals presence of mild mitral and tricuspid regurgitation, tricuspid regurgitant jet velocity insufficient for calculation of the right ventricular systolic pressure, diastolic parameters are within normal range. CONCLUSION: 1. Normal left ventricular size, preserved left ventricular systolic function, visually estimated ejection fraction 55% with no obvious regional wall motion abnormality, diastolic parameters are within normal range. 2. Mild mitral and tricuspid regurgitation 3. No significant pericardial effusion noted.
== END ==
PROVIDERS: PCP Family Medicine; Visit Provider Internal Medicine
DX: I25.5 Ischemic cardiomyopathy (principal); I25.10 Atherosclerotic heart disease of native coronary artery without angina pectoris; I11.9 Hypertensive heart disease without heart failure; E78.5 Hyperlipidemia, unspecified; Z72.0 Tobacco use
CPT/HCPCS: 93306